=== PATIENT | female | born 1925 | race Caucasian/White ===

== ENCOUNTER 2017-07-10 08:51 | Emergency (ER) | payer OTHER ==
[~2017-07-10] VITALS: Ht 165.1 cm; Wt 72.5 kg
[~2017-07-10 08:51] MED LIST: ADVAIR 250/501 DISK IH; AGGRENOX1 CAPSULE PO; ANASTROZOLE1 MG PO; Advair HFA 115/21 IH; Arimidex PO; Aspirin Chewable PO; Aspirin E.C. PO; BABY ASPIRIN81 M1 PO; Bactrim,Septra DS 80 PO; CIPROFLOXACIN250 MG PO; CRESTOR40 MG PO; CRESTOR5 MG PO; CYANOCOBALAM1000 MCG PO; Calcium Carbonate/Vi PO; Feosol PO; IRON325 M1 PO; IRON325 MG PO; ISTALOL5 ML BOTH EYES; LEVAQUIN750 MG PO; LISINOPRIL10 MG PO; LOW DOSE ASPIRI81 M1 PO; LUMIGAN 0.50 DROP/22 BOTH EYES; Lasix PO; MAXALT10 MG PO; METOPROLOL SUCC25 MG PO; NEXIUM40 MG; NEXIUM40 MG PO; PLAVIX75 MG PO; PREDNISONE50 MG PO; PREVACID15 MG PO; Plavix PO; TESSALON PERLE100 MG PO; TIMOPTIC BOTH EYES; TOPROL XL25 MG PO; TOPROL XL6.25 MG PO; Tessalon Perle PO; Toprol XL PO; VITAMIN D35000 UNIT PO; Vitamin B-12 IM; ZOFRAN4 MG PO
[2017-07-10 10:01] LABS: EOSINOPHIL (%) 4.2 % (0-5); EOSINOPHIL COUNT 0.3 K/uL (0-0.3); HEMATOCRIT 39.5 % (36.0-46.0); IMMATURE GRANULOCYTE (%) 0.4 % (0.0-0.7); INSTRUMENT ABS NEUTROPHIL CT 5.5 K/uL; LYMPHOCYTE COUNT 1.1 K/uL (1.0-2.8); MCH 30.6 PG (29.0-34.0); MCHC 32.7 G/DL (30.0-36.0); MCV 93.8 FL (83-99); MEAN PLAT.VOLUME 10.6 uM^3 (9.5-12.4); MONOCYTE (%) 10.2 % (3-12); MONOCYTE COUNT 0.8 K/uL (0-0.8); NEUTROPHIL (%) 70.9 % (45-76); NEUTROPHIL COUNT 5.5 K/uL (1.8-6.4); PLATELET COUNT 142 K/uL (156-360); RBC DIS.WIDTH-CV 12.8 % (11.8-14.6); RED BLOOD COUNT 4.21 M/uL (3.80-5.20); WHITE BLOOD COUNT 7.8 K/uL (4.1-10.2)
[2017-07-10 10:05] LABS: INTER. NORMALIZED RATIO 1.1
[2017-07-10 10:08] LABS: PTT 29.4 SEC (25-37)
[2017-07-10 10:16] LABS: CHLORIDE 104 mEq/L (99-109); SODIUM 142 mEq/L (136-147)
[2017-07-10 10:17] LABS: GLUCOSE 115 mg/dL (70-99)
[2017-07-10 10:19] LABS: ANION GAP 13 MEQ/L (2-14)
[2017-07-10 10:21] LABS: GFR ESTIMATE (CALCULATED) > 59 mL/min/; TROP-I INTERPRETATION NEGATIVE; TROPONIN-I 0.02 ng/mL (0.0-0.30)
[2017-07-10 10:22] LABS: UREA NITROGEN (BUN) 11 mg/dL (9-23)
[2017-07-10] MEDS ORDERED: PREDNISONE50 MG PO (11:42)
[2017-07-10] MEDS ORDERED: LEVAQUIN750 MG PO (11:42)
[2017-07-10] MEDS ORDERED: PROVENTIL HFA6.7 GM IH (11:42)
[2017-07-10 11:56] VITALS: BP 117/68
== END 2017-07-10 11:58 ==
LOC: EME → EDBD 08:51 → EME 08:51
PROVIDERS: Emergency Medicine
DX: J20.9 Acute bronchitis, unspecified (principal); K21.9 Gastro-esophageal reflux disease without esophagitis; E78.5 Hyperlipidemia, unspecified; E11.9 Type 2 diabetes mellitus without complications; I10 Essential (primary) hypertension; I44.7 Left bundle-branch block, unspecified; I25.10 Atherosclerotic heart disease of native coronary artery without angina pectoris; Z95.2 Presence of prosthetic heart valve; Z85.3 Personal history of malignant neoplasm of breast; Z86.73 Personal history of transient ischemic attack (TIA), and cerebral infarction without residual deficits; Z88.2 Allergy status to sulfonamides; Z88.1 Allergy status to other antibiotic agents; Z88.8 Allergy status to other drugs, medicaments and biological substances
CPT/HCPCS: 71010; 80048; 84484; 85025; 85610; 85730; 93005; 94640; 99281; 99284; J2930; J7644